=== PATIENT | female | born 1995 | race African-American/Black ===

== ENCOUNTER 2024-11-02 13:01 | Emergency (ER) | payer OTHER ==
[~2024-11-02] VITALS: Ht 165.1 cm; Wt 58.0 kg
[2024-11-02 13:05] VITALS: O2SAT 98
[2024-11-02 13:24] VITALS: BP 105/58; PULSE 73; RESP 18; TEMP 37; O2SAT 99
[2024-11-02] MEDS ORDERED: OXYM30SP26 BOTHNSTRLS (15:19)
[2024-11-02] MEDS ORDERED: BROM118S47 PO (15:19)
== END 2024-11-02 15:25 | disposition home or self-care (01) ==
LOC: ER 13:01
DX: J11.1 Influenza due to unidentified influenza virus with other respiratory manifestations (principal); R05.9 Cough, unspecified; R09.81 Nasal congestion
CPT/HCPCS: 71045; 99283

== ENCOUNTER 2025-05-25 08:51 | Emergency (ER) | payer OTHER ==
[~2025-05-25] VITALS: Ht 162.6 cm; Wt 62.0 kg
[~2025-05-25 08:51] MED LIST: BROM118S47 PO; OXYM30SP26 BOTHNSTRLS
[2025-05-25 08:54] VITALS: BP 109/73; PULSE 87; RESP 18; TEMP 37.1; O2SAT 100
[2025-05-25] MEDS ORDERED: BENZ1LOZ73 MT (09:34)
[2025-05-25] MEDS ORDERED: IBUP-1455 MT (09:34)
[2025-05-25] MEDS: DEXAMETHASONE 10 MG/ML VIAL PO ONE (09:43)
[2025-05-25] MEDS ORDERED: AMOX-494 MT (11:33)
== END 2025-05-25 09:45 | disposition home or self-care (01) ==
LOC: ER 08:51
DX: J03.00 Acute streptococcal tonsillitis, unspecified (principal); Z79.899 Other long term (current) drug therapy
CPT/HCPCS: 81025; 87430; 99283; J1100; Z7610